=== PATIENT | male | born 1980 | race Caucasian/White ===

== ENCOUNTER 2018-09-04 18:56 | Emergency (ER) | payer OTHER ==
[2018-09-04 19:12] VITALS: O2SAT 99
--- NOTE | 2018-09-04 22:58 | ED PDOC ---
HPI: Male Pain Time Seen by Provider: 09/04/18 20:45 Chief Complaint (Nursing): Male Genitourinary Chief Complaint (Provider): Male Genitourinary History Per: Patient History/Exam Limitations: no limitations Onset/Duration Of Symptoms: Persistent (x1 week) Current Symptoms Are (Timing): Still Present Additional Complaint(s): 38 year old male presents to the emergency department with left-sided penile pain ongoing for 1 week. Patient states that he has been sexually active with only 1 partner. Otherwise, he denies any fever or penile discharge. PCP: none provided Past Medical History Reviewed: Historical Data, Nursing Documentation, Vital Signs Vital Signs: Last Vital Signs Temp 98.1 F 09/04/18 19:18 Pulse 72 09/04/18 19:18 Resp 16 09/04/18 19:18 BP 122/73 09/04/18 19:18 Pulse Ox 99 09/04/18 19:18 - Medical History PMH: No Chronic Diseases - Surgical History Surgical History: No Surg Hx - Family History Family History: States: Unknown Family Hx - Allergies Allergies/Adverse Reactions: Allergies Allergy/AdvReac Type Severity Reaction Status Date / Time No Known Allergies Allergy Verified 09/04/18 19:18 Review of Systems ROS Statement: Except As Marked, All Systems Reviewed And Found Negative Constitutional: Negative for: Fever, Chills Genitourinary Male: Positive for: Penile Pain (left-sided). 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 Negative for: bleeding, erythema, lesions, testicular tenderness (R), testicular tenderness (L) - ECG O2 Sat by Pulse Oximetry: 99 (RA) Pulse Ox Interpretation: Normal Medical Decision Making Medical Decision Making: Time: 21:11 Initial Plan: * Motrin 600mg PO * Urine cx * UA * US testes duplex 22:53 Testes US FINDINGS: RIGHT TESTICLE: Normal in size and echogenicity, no abnormal mass. A 2.3 x 2.2 mm focal calcification is seen in the posterior superior right testicular pole. Additionally, a few scattered microliths are noted throughout the right testicle. The right testicle measured approximately 4.8 x 2.4 x 3.5 cm in longitudinal, AP and transverse dimensions respectively. Normal Doppler flow. LEFT TESTICLE: Normal in size and echogenicity, no abnormal mass. A few scattered microliths are noted throughout the left testicle.The left testicle measured approximately 4.5 x 2.5 x 3.0 cm in longitudinal, AP and transverse dimensions respectively. Normal Doppler flow. EPIDIDYMIDES: The epididymes are normal in size and demonstrate Doppler flow within normal limits. SCROTUM: No hydrocele or extratesticular mass seen. With having the patient performed a Valsalva maneuver; there was demonstration of a small left varicocele. IMPRESSION: 1. No acute abnormality evident on sonographic examination of the scrotum. 2. Bilateral testicular microlithiasis. 3. Small left varicocele. 22:58 Patient's ultrasound results reveal no acute findings except small varicocele. is is made aware of thsi findings. He is stable for discharge and requires no further treatment in the ED at this time he is instructed to follow up with urologist. referral given. Return precautions provided. Scribe Attestation: Documented by Dee Dee Mcghee, acting as a scribe for Redd Shah MD. Provider Scribe Attestation: All medical record entries made by the Scribe were at my direction and personally dictated by me. I have reviewed the chart and agree that the record accurately reflects my personal performance of the history, physical exam, medical decision making, and the department course for this patient. I have also personally directed, reviewed, and agree with the discharge instructions and disposition. Disposition - Clinical Impression Clinical Impression: Testicular pain, Left varicocele - Patient ED Disposition Is Patient to be Admitted: No Counseled Patient/Family Regarding: Studies Performed, Diagnosis, Need For Followup - Disposition Referrals: Mik Corrales MD [Medical Doctor] - Disposition: Routine/Home Disposition Time: 22:58 Condition: IMPROVED Additional Instructions: follow up with urologist in 2 days you do not have testicular torsion but this is information on it return to the ED with any worsening or concerning symptoms Instructions: Testicular Torsion, Adult Forms: [employer] (Welsh)
[2018-09-04 23:07] LABS: URINE BILIRUBIN NEGATIVE (NEGATIVE); URINE BLOOD NEGATIVE (NEGATIVE); URINE CLARITY SLIGHTY-CLOUDY (Clear); URINE COLOR YELLOW (YELLOW); URINE GLUCOSE (UA) NEG (NEGATIVE); URINE LEUKOCYTE ESTERASE NEG Leu/uL (Negative); URINE PROTEIN NEGATIVE (NEGATIVE); URINE UROBILINOGEN 0.2-1.0 mg/dL (0.2-1.0)
[2018-09-04 23:48] VITALS: BP 118/80; PULSE 67; RESP 18; TEMP 97.9
--- NOTE | 2018-09-05 13:42 | US ---
Date of service: 09/04/2018 HISTORY: testicular pain according to the patient the pain is more the left side than the right TECHNIQUE: Realtime sonography through the scrotum with color and doppler flow. COMPARISON: None Available. FINDINGS: RIGHT TESTICLE: Measures 4.8 x 2.4 x 3.5 cm. Normal flow. Few scattered microliths are noted. In addition in the posterior superior right testicle a coarser calcification measuring 2 x 2 x 3 mm in size is noted. No suspicious intratesticular masses noted. RIGHT EPIDIDYMIS: Epididymal head measures 9 x 5 x 11 mm. Grossly unremarkable appearance with normal flow. LEFT TESTICLE: Measures 4.5 x 2.5 x 3.0 cm. A put few scattered microliths are noted. There is normal flow LEFT EPIDIDYMIS: Epididymal head measures 7 x 6 x 7 mm. Grossly unremarkable appearance with normal flow. HYDROCELE: None. VARICOCELE: Small patent left varicoceles OTHER FINDINGS: None. IMPRESSION: No intra testicular mass. Normal flow to both testicle present. Bilateral intratesticular microliths with coarser benign-appearing calcification in the posterior superior right testicle. Unremarkable appearing epididymi. No hydroceles Patent small left hydroceles. Concordant results (preliminary interpretation) provided by [facility].
== END 2018-09-04 23:47 | disposition home or self-care (01) ==
LOC: H.ER 18:56
DX: N50.819 Testicular pain, unspecified (principal); I86.1 Scrotal varices